=== PATIENT | male | born 1990 | race Caucasian/White ===

== ENCOUNTER 2018-05-31 01:43 | Emergency (ER) | payer BC ==
[2018-05-31] MEDS ORDERED: HYDROmorphone 1 MG/ML Syringe IVPUSH STA (02:10)
[2018-05-31] MEDS ORDERED: Ondansetron 4 MG/2 ML SDV IVPUSH ONE ×2 (02:10→03:12)
[2018-05-31] MEDS ORDERED: Ertapenem 1 GM in Sodium Chloride 0.9% 100 ML IV ONE (02:11)
[2018-05-31] MEDS ORDERED: Sodium Chloride 0.9% 1,000 ML IV SCH (02:15)
--- NOTE | 2018-05-31 02:19 | EDM.PDOC ---
ED HPI GENERAL MEDICAL PROBLEM - General Chief Complaint: Abdominal Pain Stated Complaint: ABDOMINAL PAIN Time Seen by Provider: 05/31/18 01:53 Source of Information: Reports: Patient, RN Notes Reviewed History Limitations: Reports: No Limitations - History of Present Illness INITIAL COMMENTS - FREE TEXT/NARRATIVE: The patient states that he developed central abdominal discomfort around 18:00 this evening. He went and took a nap, and when he woke around 23:30, he had pain in his right lower quadrant. He describes the pain as a sticking or cramping sensation. It does not radiate. He feels most comfortable either sitting on the toilet, or lying supine in a semi-recumbent position. He feels less comfortable lying fully supine or in the left decubitus position. His pain is also made worse with movement. He has had nausea and one episode of emesis. No recent fever, watery diarrhea, or urinary symptoms. No prior similar symptoms. The patient's last oral intake was around 18:30. The patient does not have a PCP. The patient has a Psychiatrist, but does not recall their name. Right Lower Abdominal Pain Score (Numeric/FACES): 8 - Related Data Allergies Allergy/AdvReac Type Severity Reaction Status Date / Time No Known Allergies Allergy Verified 05/31/18 01:54 Home Meds: Home Meds Acetaminophen/HYDROcodone [Galliano 325-5 MG] 1 - 2 tab PO Q6H PRN #14 tablet 05/31 [Rx] Ondansetron [Zofran ODT] 1 tab PO Q8H PRN #10 tab.dis 05/31/18 [Rx] Tamsulosin HCl [Flomax] 1 cap PO QAM PRN #5 cap.er.24h 05/31/18 [Rx] Past Medical History Psychiatric History: Reports: Anxiety, Depression Endocrine/Metabolic History: Reports: Obesity/BMI 30+ - Past Surgical History HEENT Surgical History: Reports: Oral Surgery (wisdom teeth extraction) GI Surgical History: Reports: Cholecystectomy (2017) Musculoskeletal Surgical History: Reports: Arthroscopic Knee (right, x 5), Arthroscopic Procedure (right ankle, x 1) Social & Family History - Tobacco Use Smoking Status *Q: Never Smoker - Alcohol Use Alcohol Use History: Yes Alcohol Use Frequency: Socially - Recreational Drug Use Recreational Drug Use: No - Living Situation & Occupation Living situation: Reports: Single, Alone 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 ED EXAM, GI/ABD - Physical Exam Exam: See Below Exam Limited By: No Limitations General Appearance: Alert, WD/WN, No Apparent Distress Eyes: Bilateral: Normal Appearance, EOMI Ears: Normal External Exam, Hearing Grossly Normal Nose: Normal Inspection Throat/Mouth: Normal Inspection, Normal Lips, Normal Voice, No Airway Compromise Head: Atraumatic, Normocephalic Neck: Normal Inspection, Full Range of Motion Respiratory/Chest: No Respiratory Distress, Lungs Clear, Normal Breath Sounds, No Accessory Muscle Use Cardiovascular: Normal Peripheral Pulses, Regular Rate, Rhythm, No Gallop, No JVD, No Murmur, No Rub GI/Abdominal Exam: Normal Bowel Sounds, Soft, No Organomegaly, No Distention, No Abnormal Bruit, No Mass, Rebound, Tender (Right lower quadrant only. Nontender elsewhere. Rovsing sign absent. Obturator sign absent. Psoas sign absent. Heel drop sign present.), Other (Obese) (Male) Exam: Deferred Rectal (Males) Exam: Deferred Back Exam: Normal Inspection, Full Range of Motion. No: CVA Tenderness (L), CVA Tenderness (R) Extremities: Normal Inspection, Normal Range of Motion, No Pedal Edema, Normal Capillary Refill Neurological: Alert, Oriented, Normal Cognition, No Motor/Sensory Deficits Psychiatric: Normal Affect Skin Exam: Warm, Dry, Intact, Normal Color, No Rash Course - Vital Signs Last Recorded V/S: Last Vital Signs Temp 36.6 C 05/31/18 01:50 Pulse 75 05/31/18 01:50 Resp 16 05/31/18 01:50 BP 163/99 H 05/31/18 01:50 Pulse Ox 98 05/31/18 01:50 - Orders/Labs/Meds Orders: Active Orders 24 hr Category Date Time Status Strain Urine [RC] ASDIRECTED Care 05/31/18 05:59 Active Abdomen Pelvis w Cont [CT] Stat Exams 05/31/18 02:10 Taken Sodium Chloride 0.9% [Normal Saline] 1,000 ml Med 05/31/18 02:15 Active IV ASDIRECTED Medication Orders Sodium Chloride (Normal Saline) 1,000 mls @ 150 mls/hr IV ASDIRECTED OTONIEL Last Admin: 05/31/18 02:20 Dose: 150 mls/hr Labs: Laboratory Tests 05/31/18 05/31/18 05/31/18 Range/Units 02:15 02:15 06:16 WBC 9.42 H (4.23-9.07) K/mm3 RBC 5.24 (4.63-6.08) M/mm3 Hgb 16.3 (13.7-17.5) gm/L Hct 47.2 (40.1-51.0) % MCV 90.1 (79.0-92.2) fl MCH 31.1 (25.7-32.2) pg MCHC 34.5 (32.2-35.5) g/dl RDW Std Deviation 41.2 (35.1-43.9) fL Plt Count 236 (163-337) K/mm3 MPV 9.8 (9.4-12.3) fl Neutrophils % (Manual) 74 H (40-60) % Band Neutrophils % 0 (0-10) % Lymphocytes % (Manual) 25 (20-40) % Atypical Lymphs % 0 % Immat Monocytes % (Man) 0 Monocytes % (Manual) 0 L (2-10) % Eosinophils % (Manual) 1 (0.8-7.0) % Basophils % (Manual) 0 L (0.2-1.2) Metamyelocytes % 0 Myelocytes % 0 Promyelocytes % 0 Blast Cells % 0 Plasma Cell % (Manual) 0 Nucleated RBCs 0.0 % Platelet Estimate Adequate RBC Morph Comment Normal Sodium 136 (136-145) mEq/L Potassium 4.3 (3.5-5.1) mEq/L Chloride 102 (98-107) mEq/L Carbon Dioxide 26 (21-32) mEq/L Anion Gap 12.3 (5-15) BUN 18 (7-18) mg/dL Creatinine 1.1 (0.7-1.3) mg/dL Est Cr Clr Drug Dosing 129.38 mL/min Estimated GFR (MDRD) > 60 (>60) mL/min BUN/Creatinine Ratio 16.4 (14-18) Glucose 121 H (74-106) mg/dL Calcium 8.8 (8.5-10.1) mg/dL Total Bilirubin 0.6 (0.2-1.0) mg/dL AST 33 (15-37) U/L ALT 56 (16-63) U/L Alkaline Phosphatase 111 (46-116) U/L Total Protein 7.5 (6.4-8.2) g/dl Albumin 3.7 (3.4-5.0) g/dl Globulin 3.8 gm/dL Albumin/Globulin Ratio 1.0 (1-2) Urine Color Yellow (Yellow) Urine Appearance Clear (Clear) Urine pH 5.5 (5.0-8.0) Ur Specific [place] 1.020 (1.005-1.030) Urine Protein Negative (Negative) Urine Glucose (UA) Negative (Negative) Urine Ketones Negative (Negative) Urine Occult Blood 1+ H (Negative) Urine Nitrite Negative (Negative) Urine Bilirubin Negative (Negative) Urine Urobilinogen 0.2 (0.2-1.0) Ur Leukocyte Esterase Negative (Negative) Urine RBC 5-10 H (0-5) /hpf Urine WBC Not seen (0-5) /hpf Ur Epithelial Cells Not seen (0-5) /hpf Urine Bacteria Not seen (FEW) /hpf Urine Mucus Not seen (FEW) /hpf Meds: Medications Generic Name Dose Route Start Last Admin Trade Name Freq PRN Reason Stop Dose Admin Sodium Chloride 1,000 mls @ 150 mls/hr 05/31/18 02:15 05/31/18 02:20 Normal Saline IV 150 mls/hr ASDIRECTED OTONIEL Administration Discontinued Medications Generic Name Dose Route Start Last Admin Trade Name Freq PRN Reason Stop Dose Admin Diatrizoate Meglum/Diatrizoate Sod 90 ml 05/31/18 03:28 05/31/18 03:46 Gastrografin 37% PO 05/31/18 03:29 90 ml ONETIME ONE Administration Hydromorphone HCl 1 mg 05/31/18 02:10 05/31/18 02:22 Dilaudid IVPUSH 05/31/18 02:11 1 mg ONETIME STA Administration Ertapenem 1 gm/ Sodium 100 mls @ 200 mls/hr 05/31/18 02:11 05/31/18 02:23 Chloride IV 05/31/18 02:40 200 mls/hr ONETIME ONE Administration Iopamidol 100 ml 05/31/18 03:28 05/31/18 03:47 Isovue-370 (76%) IV 05/31/18 03:29 100 ml ONETIME ONE Administration Ondansetron HCl 4 mg 05/31/18 02:10 05/31/18 02:21 Zofran IVPUSH 05/31/18 02:11 4 mg ONETIME ONE Administration Ondansetron HCl 4 mg 05/31/18 03:12 05/31/18 03:18 Zofran IVPUSH 05/31/18 03:13 4 mg ONETIME ONE Administration Tamsulosin HCl 0.4 mg 05/31/18 05:57 05/31/18 06:11 Flomax PO 05/31/18 05:58 0.4 mg ONETIME ONE Administration - Re-Assessments/Exams Free Text/Narrative Re-Assessment/Exam: 05/31/18 02:12 By both history and physical exam, the patient has appendicitis. Because he has rebound tenderness, I am concerned about possible perforation, therefore, in addition to the usual evaluation of blood work and a CT scan of the abdomen and pelvis, I have ordered 1 g Invanz. 05/31/18 05:56 CT of the abdomen and pelvis with oral and IV contrast is read by Jessica as: 1. 2 mm stone at the right ureterovesicular junction causing hydronephrosis as well as hydroureter on the right. 2. Bilateral nonobstructing renal calculi measuring 1-2 mm each 3. Normal appendix right lower quadrant These findings are unexpected. I have ordered a urinalysis, to exclude a UTI. I have also ordered Flomax 0.4 mg and a urine strainer. 05/31/18 06:58 The patient's urinalysis shows a small amount of blood, but no suggestion of a UTI. I will discharge him home with patient options for Galliano, Flomax, and Zofran. The patient has been given a urine strainer. I will refer him to a Urologist, in the unlikely event that his symptoms don't resolve within about a week. Departure - Departure Time of Disposition: 06:59 Disposition: Home, Self-Care 01 Condition: Good Clinical Impression: Ureterolithiasis - Discharge Information *PRESCRIPTION DRUG MONITORING PROGRAM REVIEWED*: Not Applicable *COPY OF PRESCRIPTION DRUG MONITORING REPORT IN PATIENT REYNALDO: Not Applicable Prescriptions: Acetaminophen/HYDROcodone [Galliano 325-5 MG] 1 - 2 tab PO Q6H PRN #14 tablet PRN Reason: Pain (Severe 7-10) Ondansetron [Zofran ODT] 1 tab PO Q8H PRN #10 tab.dis PRN Reason: Nausea/Vomiting Tamsulosin HCl [Flomax] 1 cap PO QAM PRN #5 cap.er.24h PRN Reason: Pain Referrals: Olayinka Collazo MD [Ordering Only Provider] - Forms: ED Department Discharge Additional Instructions: You were seen in the emergency room for lower right abdominal pain, with nausea and vomiting. Workup in the ER included blood work, a urinalysis, and a CT scan of your abdomen and pelvis. Your workup found that you have a 2 mm stone at the very bottom of your right ureter. Given its size and location, you will almost certainly pass this stone on your own, soon. Take [id number] ibuprofen, 3-4 tablets (600-800 mg) every 8 hours, with food, as needed for pain. You may also take 1-2 tablets of the prescription opioid Galliano up to every 6 hours, as needed for pain not relieved by ibuprofen. If you take Galliano, do not drive or operate heavy machinery for 10 hours afterwards. Galliano will likely cause constipation, so consider taking a stool softener. You may take one tablet of the anti-spasm medicine Flomax every morning, starting tomorrow morning, 06/01/2018, as needed for pain. Dissolve one tablet of the anti-nausea medicine Zofran on your tongue up to every 8 hours, as needed for nausea/vomiting. Stay adequately hydrated and strain all of your urine. If you capture the stone , take it to a doctor for analysis. If you continue to have pain by the end of this week, please follow-up with the Urologist Dr. Olayinka Collazo, in [place], next week. If any other problems, please do not hesitate to return to the ER. - My Orders Last 24 Hours: My Active Orders 05/31/18 02:10 Abdomen Pelvis w Cont [CT] Stat 05/31/18 02:15 Sodium Chloride 0.9% [Normal Saline] 1,000 ml IV ASDIRECTED 05/31/18 05:59 Strain Urine [RC] ASDIRECTED - Assessment/Plan Last 24 Hours: My Active Orders 05/31/18 02:10 Abdomen Pelvis w Cont [CT] Stat 05/31/18 02:15 Sodium Chloride 0.9% [Normal Saline] 1,000 ml IV ASDIRECTED 05/31/18 05:59 Strain Urine [RC] ASDIRECTED
[2018-05-31] MEDS ORDERED: Diatrizoate Meglumine/Diatrizoate Sodium 37% 120 ML Bottle PO ONE (03:28)
[2018-05-31] MEDS ORDERED: Iopamidol 755 Mg/ML 200 ML Bottle IV ONE (03:28)
[2018-05-31] MEDS ORDERED: Tamsulosin 0.4 MG Cap.ER PO ONE (05:57)
--- NOTE | 2018-05-31 07:23 | CT ---
CT abdomen and pelvis Technique: Multiple axial sections were obtained from above the dome of the diaphragm inferiorly to the pubic symphysis. Intravenous and oral contrast was utilized. Comparison: No prior abdominal imaging. Findings: Small portion of the visualized lung bases are clear. Liver shows no focal parenchymal abnormality. Spleen appears within normal limits. Adrenal glands show no nodule. Pancreas is normal. Surgical clips are seen from prior cholecystectomy. Kidneys show symmetric contrast enhancement without hydronephrosis. Two small nonobstructing calculi measuring less than 5 mm are seen within the lower right kidney. Small nonobstructing stone is noted within the mid to lower left kidney. Right ureter is slightly prominent in size which is felt to be caused by by a small 2 - 2.5 mm distal right ureteral stone located at the UVJ. Liver and spleen appears within normal limits. Surgical clips are seen from prior cholecystectomy. Adrenal glands show no nodule. Aorta shows no aneurysm. Pancreas is within normal limits. No retroperitoneal adenopathy or mesenteric abnormalities are seen. No pelvic mass or adenopathy is seen. Appendix is seen and appears normal in size. No free fluid or inflammatory change is seen. Delayed images show contrast within the distal ureters as well as bladder. Bone window settings were reviewed which show disc space narrowing at L5-S1. Small disc protrusion noted in the superior endplate of L5. Disc space narrowing scattered within the lower thoracic spine. Impression: 1. Small nonobstructing calculi within both kidneys. 2. 2 - 2.5 mm stone within the distal right ureter at the UVJ causing mild proximal hydronephrosis. 3. Appendix is normal. Other incidental findings as noted above. Diagnostic code #3 I agree with preliminary report from [facility], finalized on 05/31/18, 6:49 AM Central Time
== END 2018-05-31 07:18 | disposition home or self-care (01) ==
LOC: JD.ED 01:43
DX: N13.2 Hydronephrosis with renal and ureteral calculous obstruction (principal)
CPT/HCPCS: 36415; 74177; 80053; 81001; 85007; 85027; 96361; 96365; 96375; 96376; 99284; A9270; J1170; J1335; J2405; J7030; J7040; Q9963; Q9967